=== PATIENT | male | born 1955 | race Caucasian/White ===

== ENCOUNTER 2022-08-14 09:14 | Outpatient (CLI) | payer MEDICARE, SELFPAY ==
[2022-08-14 09:28] VITALS: BMI 26.0
[2022-08-14 09:49] LABS: Albumin Level 3.8 g/dl (3.5-5.0)
[2022-08-14 09:52] LABS: Calcium 9.2 mg/dl (8.4-10.2); Creatinine Clearance Estimated 87 mL/min (50-200); Estimated Glomerular Filt Rate 84 ml/min (>60); GFR (African American) 102 ML/MIN (>60)
[2022-08-14 10:06] VITALS: BP 141/75; PULSE 66; RESP 18; O2SAT 100
[2022-08-14 10:25] VITALS: BP 143/71; PULSE 68; RESP 18; O2SAT 100
== END 2022-08-14 10:25 | disposition home or self-care (01) ==
LOC: INF 09:19
PROVIDERS: PCP Family Medicine; Visit Provider Family Medicine
DX: Z87.81 Personal history of (healed) traumatic fracture (principal)
CPT/HCPCS: 82040; 82310; 82565; 96374; J3489